=== PATIENT | female | born 1985 | race Caucasian/White ===

== ENCOUNTER → 2021-06-20 12:34 | Outpatient (BNVA) | payer MEDICAID, SELFPAY | PROVIDERS: Family Provider Family Medicine; Visit Provider Family Medicine | DX: Z00.00 Encounter for general adult medical examination without abnormal findings (principal); Z82.49 Family history of ischemic heart disease and other diseases of the circulatory system; Z83.3 Family history of diabetes mellitus | CPT/HCPCS: 80053; 80061; 83036; 84443; 85025 ==

== ENCOUNTER → 2021-09-25 11:27 | Outpatient (BNVA) | payer MEDICAID, SELFPAY | PROVIDERS: Family Provider Family Medicine; PCP Family Medicine; Visit Provider Family Medicine | DX: E78.5 Hyperlipidemia, unspecified (principal); R73.09 Other abnormal glucose | CPT/HCPCS: 80053; 80061; 83036 ==

== ENCOUNTER → 2022-01-21 11:10 | Outpatient (BNVA) | payer MEDICAID, SELFPAY | PROVIDERS: Family Provider Family Medicine; PCP Family Medicine; Visit Provider Family Medicine | DX: E11.9 Type 2 diabetes mellitus without complications (principal); E78.1 Pure hyperglyceridemia; F41.1 Generalized anxiety disorder; G43.909 Migraine, unspecified, not intractable, without status migrainosus; E66.9 Obesity, unspecified | CPT/HCPCS: 80053; 80061; 83036; 85025 ==

== ENCOUNTER → 2022-06-18 14:47 | Outpatient (BNVA) | payer MEDICAID, SELFPAY | PROVIDERS: Family Provider Family Medicine; PCP Family Medicine; Visit Provider Nurse Practitioner Family | DX: E11.9 Type 2 diabetes mellitus without complications (principal); I10 Essential (primary) hypertension; G43.909 Migraine, unspecified, not intractable, without status migrainosus | CPT/HCPCS: 71046; 80053; 80061; 82043; 82607; 83036; 84443; 85025 ==

== ENCOUNTER → 2022-07-04 14:00 | Outpatient (BNVA) | payer MEDICAID, SELFPAY | PROVIDERS: Family Provider Family Medicine; PCP Family Medicine; Visit Provider Nurse Practitioner Family | DX: Z12.4 Encounter for screening for malignant neoplasm of cervix (principal) | CPT/HCPCS: 87624 ==

== ENCOUNTER 2022-07-23 11:15 | Outpatient (CLI) | payer MEDICAID, SELFPAY ==
--- NOTE | 2022-07-23 11:15 | US_ITS ---
WS: [id number] Transabdominal and transvaginal PELVIC ULTRASOUND HISTORY: N94.10 - Unspecified dyspareunia COMPARISON: None available. Uterus: 9.8 cm x 5.7 cm x 4.8 cm. Normal size and echogenicity. No fibroids are identified. Endometrium: 1.7 cm. Normal homogeneity and size. Right ovary: 2.9 cm x 2.1 cm x 2.4 cm; no solid or cystic mass. Normal vascularity. There is a small cyst in the RIGHT adnexa was appears separate from the ovary measuring 16 x 11 x 13 mm. Paraovarian c yst is likely. This is very benign in appearance with no solid component. No increased vascularity. Left ovary: 3.0 cm x 3.1 cm x 1.9 cm; no solid or cystic mass. Normal vascularity. No free fluid in the cul-de-sac.
--- NOTE | 2022-07-23 13:45 | MR_ITS ---
WS: [id number] MRI BRAIN WITHOUT CONTRAST HISTORY: G43.909 - Migraine, unspecified, not intractable, without aura. COMPARISON: None available. TECHNIQUE: Diffusion imaging, multiplanar T1, T2 and FLAIR imaging obtained. No evidence for acute infarct or hemorrhage. Garcia-white matter differentiation is normal. No remote or acute infarcts are volume loss. Ventricles and extra-axial spaces are normal. No inferior displacement of cerebellar tonsils. The sella turcica and pituitary gland are unremarkabl e. Dural venous sinuses and [place] demonstrate no abnormality on this unenhanced studies. Paranasal sinuses: Significant mucoperiosteal thickening involving the RIGHT maxillary sinus with ext ension into the posterior ethmoid air cells and RIGHT sphenoid sinus. No air-fluid levels. Mastoid air cells: Normal. Calvarium and scalp: Intact. MR/MR head wo con* [id number] IMPRESSION: 1. No acute infarcts or hemorrhage. No significant atrophy. 2. Significant RIGHT maxillary, posterior ethmoid air cells and RIGHT sphenoid sinus disease.
--- NOTE | 2022-07-23 14:20 | US_ITS ---
WS: [id number] Transabdominal and transvaginal PELVIC ULTRASOUND HISTORY: N94.10 - Unspecified dyspareunia COMPARISON: None available. Uterus: 9.8 cm x 5.7 cm x 4.8 cm. Normal size and echogenicity. No fibroids are identified. Endometrium: 1.7 cm. Normal homogeneity and size. Right ovary: 2.9 cm x 2.1 cm x 2.4 cm; no solid or cystic mass. Normal vascularity. There is a small cyst in the RIGHT adnexa was appears separate from the ovary measuring 16 x 11 x 13 mm. Paraovarian c yst is likely. This is very benign in appearance with no solid component. No increased vascularity. Left ovary: 3.0 cm x 3.1 cm x 1.9 cm; no solid or cystic mass. Normal vascularity. No free fluid in the cul-de-sac. US/US pelvis lmt w transvag IMPRESSION: 1. Very mild thickening of the endometrium but no mass or nodules. Endometrium is measuring top normal size. No evidence for adenomyosis. 2. No ovarian mass or cyst. 3. RIGHT adnexal cyst. Maximum diameter 1.6 cm. Likely benign. Paraovarian cys t or paratubal cyst is likely.
== END 2022-07-23 11:16 | disposition home or self-care (01) ==
PROVIDERS: PCP Nurse Practitioner Family; Visit Provider Nurse Practitioner Family
DX: G43.909 Migraine, unspecified, not intractable, without status migrainosus (principal)
CPT/HCPCS: 70551; 76830; 76856; 76857

== ENCOUNTER → 2022-09-11 08:21 | Outpatient (BNVA) | payer MEDICAID, SELFPAY | PROVIDERS: PCP Nurse Practitioner Family; Visit Provider Nurse Practitioner Family | DX: R39.9 Unspecified symptoms and signs involving the genitourinary system (principal); J06.9 Acute upper respiratory infection, unspecified; B37.31 Acute candidiasis of vulva and vagina; N39.0 Urinary tract infection, site not specified | CPT/HCPCS: 81003 ==

== ENCOUNTER → 2022-11-08 09:10 | Outpatient (BNVA) | payer MEDICAID, SELFPAY | PROVIDERS: PCP Nurse Practitioner Family; Visit Provider Nurse Practitioner Family | DX: J02.9 Acute pharyngitis, unspecified (principal) | CPT/HCPCS: 87880 ==

== ENCOUNTER 2023-01-25 22:31 | Emergency (ER) | payer MEDICAID, SELFPAY ==
[2023-01-25 22:36] VITALS: BP 160/107; PULSE 88; RESP 16; TEMP 36.7; O2SAT 99; BMI 40.3
--- NOTE | 2023-01-25 22:50 | XRR_ITS ---
PROCEDURE INFORMATION: Exam: XR Right Knee Exam date and time: 01/25/2023 10:53 PM Age: 37 years old Clinical indication: Pain; Knee; Left; Additional info: Knee pain TECHNIQUE: Imaging protocol: Radiologic exam of the right knee. Views: 3 views. COMPARISON: No relevant prior studies available. FINDINGS: Bones/joints: Normal. Soft tissues: Normal. XR/XR knee RT 3V* [id number] IMPRESSION: No acute findings.
--- NOTE | 2023-01-25 23:25 | ED_ITS ---
HPI - Extremity Problem General: Chief complaint: Extremity Injury, Lower Stated complaint: R knee injury Time Seen by Provider: 01/25/23 22:34 History of Present Illness: Basia is a 37-year-old female that presents to the emergency department with complaints of right knee pain. Patient reports that she was having some back pain and went to the rest in bed. When she attempted to get out of bed to go to the restaurant she felt a twinge in her back and then developed this right lateral knee pain. Denies any symptoms in the proximal aspect of the leg, hip, low back. Is any symptoms in the distal aspect of the extremity. Denies numbness and tingling. Denies any back pain right now Denies falls or injuries Associated symptoms: Deny chest pain, fever(s) or rash Review of Systems General: Reports: 10 or more systems reviewed and unremarkable except in HPI and below Const: Denies: fever(s), chills, change in appetite, change in weight, fatigue or malaise Eyes: Denies: change in vision, eye discomfort, eye discharge or eye redness ENMT: Denies: throat pain, enlarged tonsils, odynophagia, hoarseness, ear or mastoid pain, ear discharge, change in hearing, tinnitus, nasal discharge, nasal congestion, post nasal drip or sinus pain Card: Denies: chest pain, palpitations, irregular heart rhythm, edema, dyspnea on exertion, orthopnea or leg pain with exertion Resp: Denies: dyspnea, productive cough, non-productive cough, wheezing, stridor or chest congestion GI: Denies: abdominal pain, nausea, vomiting, dysphagia, diarrhea, constipation, bloating, GI cramping or hematochezia : Denies: flank pain, difficulty voiding, dysuria, urinary frequency, urinary urgency, urinary hesitancy, oliguria or hematuria Musc: Denies: neck pain, back pain, extremity pain, joint pain, joint swelling, joint redness, joint warmth or muscle weakness Skin/Breast: Denies: rash, pruritus, erythema, photosensitivity or new lesions Neuro: Denies: headache(s), numbness in extremities, weakness in extremities, sensory changes, lack of coordination, difficulty walking, frequent falls, dizziness, confusion, Slurred speech present, difficulty communicating thoughts, seizure-like activity or involuntary movements Endo: Denies: polyuria, polydipsia or tired all the time Timi/Lymph: Denies: easy bruising or easy bleeding PFSH ED PFSH: Medical History FH: cholecystectomy Generalized anxiety disorder GERD (gastroesophageal reflux disease) Major depressive disorder No pertinent past medical history neghx: thryoid,dvt/pe PCP: Sharonda Lopez Obesity Obstruction of ventilation tube of both ears by cerumen PTSD (post-traumatic stress disorder) Surgical History Dilation of esophagus History of cholecystectomy History of tubal ligation Hx of tonsillectomy Family History Mother Psychiatric illness Diabetes Hypertension CAD (coronary artery disease) Heart disease Grandmother Stomach cancer maternal Unknown Breast cancer Uterine cancer Father Stroke Denies family history of Colon cancer Ovarian cancer Thyroid condition Social History Smoking and tobacco status: never smoked Alcohol intake: never Substance/Drug Use: never Lives independently: Yes Household members: spouse and children Marital status: Number of children: 3 Current occupational status: unemployed Current gender identity: Female Special ifeanyi needs: No Physical Exam Const: COMMON NORMALS: no acute distress, patient oriented x3 and alert GENERAL APPEARANCE: cooperative ORIENTATION/CONSCIOUSNESS: Yes awake, Yes oriented to person, Yes oriented to place and Yes oriented to time HENMT: COMMON NORMALS: normocephalic and atraumatic HEAD & SCALP: normocephalic and atraumatic FACE & SINUS: normal facial exam MOUTH: Normal oral and palatal mucosa present THROAT: posterior oropharynx normal Eye: COMMON NORMALS: Equal, round and reactive pupils present, EOMs intact bilaterally, conjunctivae normal and no scleral icterus GENERAL EYE: appearance normal, both eyes and all related structures ALIGNMENT: Yes alignment normal PERIORBITAL: periorbital findings normal CONJUNCTIVA: Yes conjunctivae normal PUPIL: Yes Equal, round and reactive pupils present Neck/C-Spine: COMMON NORMALS: full ROM GENERAL: Yes normal visual inspection Lymph: LYMPHATIC: no lymphadenopathy noted Chest: COMMONS NORMALS: normal inspection of the chest Breast/axilla inspection: Yes no chest deformity, asymmetry, normal contours, no nodules, masses, tenderness Resp: COMMON NORMALS: normal respiratory effort, No retractions, No use of accessory muscles and clear to auscultation bilaterally EFFORT & INSPECTION: Yes able to speak in complete sentences and Yes symmetric chest movement AUSCULTATION: clear to auscultation bilaterally Cardio: COMMON NORMALS: regular rate, regular rhythm and Peripheral pulses 2+ throughout RATE: regular rate RHYTHM: regular rhythm PERIPHERAL PULSES: Peripheral pulses 2+ throughout GI: COMMON NORMALS: Normal to inspection, nondistended, normoactive bowel sounds present, Soft to palpation, non-tender and No hepatosplenomegaly present INSPECTION: Yes normal to inspection AUSCULTATION: Yes normoactive bowel sounds PALPATION: Yes Soft to palpation and Yes No hepatosplenomegaly present RECTAL EXAM: deferred Extremity: COMMON NORMALS: normal to inspection GENERAL: Yes normal exam except as noted OTHER: Right lower extremity: Skin is clean dry and intact Nontender to palpation over right lumbar spine, hip, thigh. Patient is tender to palpation on the lateral aspect of the right knee. She has full active range of motion of hip and knee 5/5 strength hip flexor, quad, gastroc, anterior tibialis and toe extensors. Sensations intact throughout the extremity Pulses are palpable and cap refills less than 3 seconds Neuro: COMMON NORMALS: patient oriented x3 SENSORIUM/ORIENTATION: Yes alert, Yes oriented to person, Yes oriented to place and Yes oriented to time CRANIAL NERVES: Yes CN normal except as noted Psych: COMMON NORMALS: mental status grossly normal, Normal thought process present, cooperative, activity/motor behavior normal, denies homicidal ideation and denies suicidal ideation THOUGHT PROCESS: Normal thought process present Skin: COMMON NORMALS: no rashes or lesions noted, no wounds and turgor normal GENERAL SKIN EXAM: no rashes or lesions noted and turgor normal Course Vital Signs: Vital signs: Vital Signs Temperature 98.1 F 01/25/23 22:36 Pulse Rate 88 01/25/23 22:36 Respiratory Rate 16 01/25/23 22:36 Blood Pressure 160/107 01/25/23 22:36 Pulse Oximetry 99 01/25/23 22:36 MDM - Extremity (Nontraumatic) Medical Decision Making Patient was evaluated in the emergency department. Patient underwent XR of knees. Patient does relate history of possible right-sided lumbar back pain at the same time the knee pain developed. This has resolved and the knee pain persists. Talked with patient about the possibility that this pain is referred from her back with a nerve root impingement. If it continues she will need to see her primary care doctor but a potential MR of her lumbar spine. Needs to begin weight loss and back exercises. She may use nonsteroidal anti-inflammatory drugs to help with inflammation but should also add Tylenol to help with pain Ice to the knee Work on range of motion of the joints All questions answered Lab Data Radiology Impressions Knee X-Ray 01/25/23 22:50 IMPRESSION: No acute findings. Discharge Plan Discharge Patient Disposition: Home Clinical Impression: Knee strain Condition: Stable Prescriptions: No Action (DME) lancets 31 gauge misc See Rx Instructions .Route Qty: 100 0RF Rx Instructions: As directed diclofenac sodium 75 mg tablet,delayed release (DR/EC) 75 mg PO BID PRN (Reason: pain) Qty: 60 0RF cyclobenzaprine 10 mg tablet See Rx Instructions PO TID PRN (Reason: muscle spasm) Qty: 30 0RF Rx Instructions: 1/2 to 1 tablet orally three times daily PRN; Nurtec ODT 75 mg tablet,disintegrating 75 mg PO ONCE Qty: 10 5RF buspirone 10 mg tablet 10 mg PO BID Qty: 60 2RF Januvia 100 mg tablet 100 mg PO DAILY Qty: 30 4RF sertraline 100 mg tablet 200 mg PO DAILY Qty: 60 3RF fenofibrate 160 mg tablet 160 mg PO DAILY Qty: 30 2RF lisinopril 10 mg tablet 10 mg PO DAILY Qty: 30 3RF budesonide-formoterol [Symbicort] 160-4.5 mcg/actuation HFA aerosol inhaler 2 puff inhalation BID Qty: 10.2 2RF albuterol sulfate [ProAir HFA] 90 mcg/actuation HFA aerosol inhaler 2 puff inhalation Q6H PRN (Reason: shortness of breath or wheezing) Qty: 8.5 2RF (DME) Blood Glucose Test Strip See Rx Instructions .Route Qty: 50 2RF Rx Instructions: check blood sugar 2 times daily rizatriptan [Maxalt] 10 mg tablet See Rx Instructions PO .COMPLEX Qty: 10 5RF Rx Instructions: take 1 tab at onset of headache; if no relief may repeat 1 tab after at least 2 hrs; max = 3 tabs/24 hr PO montelukast [Singulair] 10 mg tablet 10 mg PO DAILY Qty: 30 2RF triamcinolone acetonide 0.1 % cream 1 applic topical BID Qty: 80 0RF pantoprazole [Protonix] 40 mg tablet,delayed release (DR/EC) 40 mg PO DAILY 30 Days Qty: 30 0RF sucralfate [Carafate] 1 gram tablet 1 g PO TID Qty: 20 0RF ondansetron HCl 4 mg tablet 4 mg PO TID PRN (Reason: nausea and vomiting) Qty: 20 0RF cetirizine [Zyrtec] 10 mg tablet 10 mg PO DAILY PRN (Reason: allergy symptoms) Qty: 90 1RF fluticasone propionate [Flonase Allergy Relief] 50 mcg/actuation spray,suspension 2 spray intranasal DAILY Qty: 16 2RF Rx Instructions: administer into each nostril famotidine 20 mg tablet See Rx Instructions .ROUTE .COMPLEX Qty: 60 1RF Dose Instruction: TAKE ONE TABLET BY MOUTH TWICE DAILY Rx Instructions: TAKE ONE TABLET BY MOUTH TWICE DAILY spinosad [Natroba] 0.9 % suspension 120 ml topical Q7D Qty: 120 0RF Discharge Orders: Discharge ED (Routine); Ordered 01/25/23 Ordered By: Cachorro Grimes Referrals: Sharonda Lopez FNP [Primary Care Provider] - Discharge Diet: Advance as tolerated Discharge Activity: Resume usual activity Patient Instructions: Knee Pain (ED), Pain Management Activity Restrictions/Additional Instructions: Ice, ibuprofen, Tylenol inflammation I want you to work on back exercises as well as weight loss to help with both the knee and back strong back and strong legs will help avoid future injury If your back pain or your knee pain, follow-up with your primary care doctor. 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
[2023-01-25 23:35] VITALS: BP 160/107; PULSE 88; RESP 16; TEMP 36.7; O2SAT 99
== END 2023-01-25 23:36 | disposition home or self-care (01) ==
PROVIDERS: Emergency Provider Nurse Practitioner; PCP Nurse Practitioner Family
DX: S76.911A Strain of unspecified muscles, fascia and tendons at thigh level, right thigh, initial encounter (principal); X58.XXXA Exposure to other specified factors, initial encounter
CPT/HCPCS: 73562; 99283

== ENCOUNTER 2023-03-07 09:01 | Outpatient (CLI) | payer MEDICAID, SELFPAY ==
--- NOTE | 2023-03-07 09:07 | XR_ITS ---
WS: [email or web address] [id number] REASON FOR EXAM: M79.602 - Pain in left arm FINDINGS: Humerus is intact without fracture. No periosteal reaction. No abnormality in the adjacent soft tissue. IMPRESSION: No significant abnormality.
--- NOTE | 2023-03-07 09:07 | XR_ITS ---
WS: [id number] XR wrist LT min 3V* [id number] REASON FOR EXAM: M79.602 - Pain in left arm FINDINGS: No acute fracture. No periosteal reaction. Radial and ulnar carpal joints are intact and well preserved. Intercarpal joints are intact and well preserved. No abnormality in the adjacent soft tissues. IMPRESSION: No significant abnormality.
== END 2023-03-07 09:02 | disposition home or self-care (01) ==
PROVIDERS: PCP Nurse Practitioner Family; Visit Provider Nurse Practitioner Family
DX: M79.602 Pain in left arm (principal)
CPT/HCPCS: 73060; 73110

== ENCOUNTER → 2023-04-11 09:21 | Outpatient (BNVA) | payer MEDICAID, SELFPAY | PROVIDERS: PCP Nurse Practitioner Family; Visit Provider Nurse Practitioner Family | DX: N64.4 Mastodynia (principal); R10.9 Unspecified abdominal pain | CPT/HCPCS: 81003; 81025; 87086 ==

== ENCOUNTER → 2023-04-21 12:06 | Outpatient (BNVA) | payer MEDICAID, SELFPAY | PROVIDERS: PCP Nurse Practitioner Family; Visit Provider Nurse Practitioner Family | DX: N93.9 Abnormal uterine and vaginal bleeding, unspecified (principal) | CPT/HCPCS: 84702 ==

== ENCOUNTER → 2023-07-14 15:31 | Outpatient (BNVA) | payer MEDICAID, SELFPAY | PROVIDERS: PCP Nurse Practitioner Family; Visit Provider Nurse Practitioner Family | DX: N39.0 Urinary tract infection, site not specified (principal) | CPT/HCPCS: 81003; 87086 ==

== ENCOUNTER → 2023-10-22 16:54 | Outpatient (BNVA) | payer MEDICAID, SELFPAY | PROVIDERS: PCP Nurse Practitioner Family; Visit Provider Nurse Practitioner Family | DX: E11.9 Type 2 diabetes mellitus without complications (principal) | CPT/HCPCS: 80053; 80061; 82043; 82607; 83036; 84443; 85025 ==

== ENCOUNTER 2023-11-12 09:56 | Outpatient (CLI) | payer MEDICAID, SELFPAY ==
--- NOTE | 2023-11-12 10:00 | MM_ITS ---
WS: [id number] BILATERAL SCREENING DIGITAL TOMOSYNTHESIS MAMMOGRAM WITH CAD HISTORY: Z12.39 - Encounter for other screening for malignant neop... COMPARISON: None available. Bilateral CC and MLO views with tomosynthesis and synthetic mammography submitted. Computer aided det ection analyzed. Breast composition: There are scattered areas of fibroglandular density. No suspicious masses, microc alcifications or architectural distortion. MM/[place] [id number] IMPRESSION: BI-RADS: 1-Negative FOLLOW UP: 1 Year Follow-up
== END 2023-11-12 09:57 | disposition home or self-care (01) ==
LOC: MOBLMAM 10:03
PROVIDERS: PCP Nurse Practitioner Family; Visit Provider Nurse Practitioner Family
DX: Z12.31 Encounter for screening mammogram for malignant neoplasm of breast (principal); R92.323 Mammographic fibroglandular density, bilateral breasts
CPT/HCPCS: 77063; 77067

== ENCOUNTER → 2024-04-05 12:50 | Outpatient (BNVA) | payer MEDICAID, SELFPAY | PROVIDERS: PCP Nurse Practitioner Family; Visit Provider Nurse Practitioner Family | DX: R05.9 Cough, unspecified (principal); M25.512 Pain in left shoulder | CPT/HCPCS: 73030; 87071; 87426; 87880 ==

== ENCOUNTER → 2024-04-16 14:41 | Outpatient (BNVA) | payer MEDICAID, SELFPAY | PROVIDERS: PCP Nurse Practitioner Family; Visit Provider Nurse Practitioner Family | DX: R10.9 Unspecified abdominal pain (principal) | CPT/HCPCS: 81000; 81025 ==

== ENCOUNTER → 2024-07-29 11:56 | Outpatient (BNVA) | payer MEDICAID, SELFPAY | PROVIDERS: Family Provider Nurse Practitioner Family; PCP Nurse Practitioner Family; Visit Provider Nurse Practitioner Family | DX: N93.9 Abnormal uterine and vaginal bleeding, unspecified (principal) | CPT/HCPCS: 80053; 81025; 83001; 84146; 84443; 85025 ==

== ENCOUNTER → 2024-08-24 09:46 | Outpatient (BNVA) | payer MEDICAID, SELFPAY | PROVIDERS: Family Provider Nurse Practitioner Family; PCP Nurse Practitioner Family; Visit Provider Nurse Practitioner Family | DX: L03.011 Cellulitis of right finger (principal) | CPT/HCPCS: 87070; 87075; 87077; 87184; 87205 ==

== ENCOUNTER → 2024-09-15 11:09 | Outpatient (BNVA) | payer MEDICAID, SELFPAY | PROVIDERS: Family Provider Nurse Practitioner Family; PCP Nurse Practitioner Family; Visit Provider Nurse Practitioner Women's Health | DX: N93.9 Abnormal uterine and vaginal bleeding, unspecified (principal) | CPT/HCPCS: 82607; 82728; 82746; 83550 ==

== ENCOUNTER → 2024-10-06 11:06 | Outpatient (BNVA) | payer MEDICAID, SELFPAY | PROVIDERS: Family Provider Nurse Practitioner Family; PCP Nurse Practitioner Family; Visit Provider Nurse Practitioner Women's Health | DX: N92.6 Irregular menstruation, unspecified (principal) | CPT/HCPCS: 76830 ==

== ENCOUNTER → 2024-12-31 12:57 | Outpatient (BNVA) | payer MEDICAID, SELFPAY | PROVIDERS: Family Provider Nurse Practitioner Family; PCP Nurse Practitioner Family; Visit Provider Nurse Practitioner Family | DX: M79.632 Pain in left forearm (principal); M19.012 Primary osteoarthritis, left shoulder; M25.712 Osteophyte, left shoulder | CPT/HCPCS: 73030; 73090 ==

== ENCOUNTER → 2025-01-13 12:02 | Outpatient (BNVA) | payer MEDICAID, SELFPAY | PROVIDERS: Family Provider Nurse Practitioner Family; PCP Nurse Practitioner Family; Visit Provider Nurse Practitioner Family | DX: M54.9 Dorsalgia, unspecified (principal); N39.0 Urinary tract infection, site not specified | CPT/HCPCS: 81003; 87086 ==

== ENCOUNTER 2025-02-01 10:37 | Day surgery (SDC) | payer MEDICAID, SELFPAY ==
[2025-02-01] VITALS (12 sets, daily range): BP systolic 117–154; BP diastolic 83–111; PULSE 82–90; RESP 13–22; TEMP 36.1–36.4; O2SAT 91–100; BMI 41.9
--- NOTE | 2025-02-01 01:06 | W.PM.OPSFHP ---
Same Day Surgery H&P Indication for Procedure/HPI DATE OF PROCEDURE: February 01, 2025 CHIEF COMPLAINT/INDICATIONFOR SURGICAL PROCEDURE: abnormal uterine bleeding PREOP DIAGNOSIS: abnormal uterine bleeding PLANNED PROCEDURE: Operation Date: 02/01/25 12:15 Proposed Procedures p Hysteroscopy w/ Endometrial Sampling 12530 [id number] 20044, N92.6(Not Applicable) - Jung Peralta MD s POSSIBLE Endometrial Poylpectomy(Not Applicable) - Jung Peralta MD s Endometrial Ablation(Not Applicable) - Jung Peralta MD Medications/Allergies* Home Medications ?Medication ?Instructions ?Recorded ?Confirmed ?Type albuterol sulfate 90 mcg/actuation 1 inh inhalation DIRECTED 01/31/25 01/31/25 History aerosol inhaler (Ventolin HFA) diclofenac sodium 75 mg 75 mg PO BID 01/31/25 01/31/25 History tablet,delayed release pantoprazole 40 mg tablet,delayed 40 mg PO DAILY 01/31/25 01/31/25 History release Allergies/Adverse Reactions Allergy/AdvReac Type Severity Reaction Status Date / Time morphine Allergy Severe sick Verified 12/09/24 10:26 metformin Allergy Intermediate ALGY-Rash Verified 12/09/24 10:26 Pertinent History/Comorbid Conditions* Medical History (Updated 09/27/24 @ 10:33 by Erma Naylor NP) Para-ovarian cyst (~2022) incidental finding on u/s No pertinent past medical history neghx: thryoid,dvt/pe PCP: Sharonda Lopez GERD (gastroesophageal reflux disease) Obstruction of ventilation tube of both ears by cerumen FH: cholecystectomy Obesity Generalized anxiety disorder Major depressive disorder PTSD (post-traumatic stress disorder) Surgical History (Updated 01/06/23 @ 10:04 by BONILLA Roman) History of cholecystectomy Dilation of esophagus Hx of tonsillectomy History of tubal ligation Family History (Updated 09/17/22 @ 11:08 by Emilie Eller LPN) Grandmother Mother Stomach cancer Grandmother maternal Diabetes Mother CAD (coronary artery disease) Mother Heart disease Mother Psychiatric illness Mother Breast cancer Unknown Hypertension Mother Uterine cancer Unknown Stroke Father Denies family history of Colon cancer Ovarian cancer Thyroid disease Social History Smoking and tobacco/nicotine status: never used tobacco/nicotine Alcohol intake: never Substance/Drug Use: never Lives independently: Yes Household members: spouse and children Marital status: Number of children: 3 Current occupational status: unemployed Current gender identity: Female Special ifeanyi needs: No Pertinent Exam Findings alert, oriented x 3, clear to auscultation bilaterally and regular rate & rhythm Recommendations Surgery/Procedure today Coding Level of Care Code Acute Code for Chg Fwd
--- NOTE | 2025-02-01 11:12 | W.PM.OPSUD ---
Surgery/Procedure H&P Update DATE OF PROCEDURE: February 01, 2025 DATE H&P PERFORMED: 02/01/25 H&P UPDATE INFORMATION: I have reviewed H&P completed within last 30 days, I have examined patient prior to procedure and No changes to prior documentation PREOP DIAGNOSIS: abnormal uterine bleeding PLANNED PROCEDURE: Operation Date: 02/01/25 12:15 Proposed Procedures p Hysteroscopy w/ Endometrial Sampling 08595 [id number] 88112, N92.6(Not Applicable) - Jung Peralta MD s POSSIBLE Endometrial Poylpectomy(Not Applicable) - Jung Peralta MD s Endometrial Ablation(Not Applicable) - Jung Peralta MD
--- NOTE | 2025-02-01 11:22 | ANES.PREANE2 ---
Pre-Anesthetic Assessment Height/Weight: Height 1.68 m Weight 117.934 kg Temp Pulse Resp BP Pulse Ox O2 Del Method 97 F L 90 18 153/99 98 Room Air 02/01/25 11:00 02/01/25 11:00 02/01/25 11:00 02/01/25 11:22 02/01/25 11:00 02/01/25 11:00 Preop Diagnosis: abnormal uterine bleeding Operation Date: 02/01/25 12:15 Proposed Procedures p Hysteroscopy w/ Endometrial Sampling 08155 [id number] 84970, N92.6(Not Applicable) - Jung Peralta MD s POSSIBLE Endometrial Poylpectomy(Not Applicable) - Jung Peralta MD s Endometrial Ablation(Not Applicable) - Jung Peralta MD Familial anesthetic complications: None Was Beta Mono taken within 24 hours: N/A Was Clonidine taken within 24 hours: N/A Last intake: Intake Last Liquid Date 01/31/25 Last Liquid Time 22:30 Last Solid Date 01/31/25 Last Solid Time 22:30 Social No alcohol and No tobacco Exam alert, oriented x 3, clear to auscultation bilaterally and regular rate & rhythm Airway Mallampati: Class II Dentition: chipped Pulmonary Asthma CV/HEM Hypertension GI Gastroesophageal Reflux Disease Metabolic Diabetes Mellitus and Morbid Obesity Anesthetic Plan ASA status: 3 Anesthesia: General Risk of > 500 ml blood loss (7ml/kg in children): No Medications/Allergies Home Medications ?Medication ?Instructions ?Recorded ?Confirmed ?Last Taken ?Type lancets 31 gauge #100 ea 01/21/22 01/14/25 Unknown Rx blood sugar diagnostic (Blood #50 ea 03/28/22 01/14/25 Unknown Rx Glucose Test strips) blood sugar diagnostic (Blood #200 ea 07/14/23 01/14/25 Unknown Rx Glucose Test strips) blood-glucose meter #1 ea 07/14/23 01/14/25 Unknown Rx lancets #200 ea 07/14/23 01/14/25 Unknown Rx dapagliflozin propanediol 10 mg 10 mg PO QAM #30 tabs 10/27/23 01/31/25 01/31/25 Rx tablet (Farxiga) albuterol sulfate 90 mcg/actuation 1 inh inhalation DIRECTED 01/31/25 01/31/25 01/29/25 History aerosol inhaler (Ventolin HFA) diclofenac sodium 75 mg 75 mg PO BID 01/31/25 01/31/25 Unknown History tablet,delayed release pantoprazole 40 mg tablet,delayed 40 mg PO DAILY 01/31/25 01/31/25 01/30/25 History release Allergies Allergy/AdvReac Type Severity Reaction Status Date / Time morphine Allergy Severe sick Verified 02/01/25 11:00 metformin Allergy Intermediate ALGY-Rash Verified 02/01/25 11:00 Current Medications Generic Name Dose Route Start Last Admin Trade Name [place] PRN Reason Stop Dose Admin Sodium Chloride 1,000 mls @ 30 mls/hr 02/01/25 10:45 02/01/25 11:13 Sodium Chloride 0.9% IV 02/02/25 10:44 30 mls/hr .Q24H [place] Administration PFSH Anesthesia Medical History Para-ovarian cyst (~2022) incidental finding on u/s No pertinent past medical history neghx: thryoid,dvt/pe PCP: Sharonda Lopez GERD (gastroesophageal reflux disease) Obstruction of ventilation tube of both ears by cerumen FH: cholecystectomy Obesity Generalized anxiety disorder Major depressive disorder PTSD (post-traumatic stress disorder) Surgical History History of cholecystectomy Dilation of esophagus Hx of tonsillectomy History of tubal ligation Family History Mother Psychiatric illness Diabetes Hypertension CAD (coronary artery disease) Heart disease Grandmother Stomach cancer maternal Unknown Breast cancer Uterine cancer Father Stroke Denies family history of Colon cancer Ovarian cancer Thyroid disease Social History Smoking and tobacco/nicotine status: never used tobacco/nicotine Alcohol intake: never Substance/Drug Use: never Lives independently: Yes Household members: spouse and children Marital status: Number of children: 3 Current occupational status: unemployed Current gender identity: Female Special ifeanyi needs: No
--- NOTE | 2025-02-01 13:35 | PM.OP ---
Operative Report Date of procedure: February 01, 2025 Pre-op diagnosis: abnormal uterine bleeding Post-op diagnosis: same Post-op findings: Normal endometrial cavity No endometrial polyps or fibroids Minimal endometrial tissue Unable to perform endometrial ablation due to technical difficulties Procedure done: Hysteroscopy Curettage of uterus Attempted endometrial ablation with Novasure device Implants: none Specimens removed/disposition: endometrial curettings Surgeon: Jung Peralta MD Anesthesia: MAC Estimated blood loss (mL): 5 Complications: none Findings: see above Condition: stable Disposition: PACU Brief History: 39 y.o. with history of irregular, heavy menstrual bleeding Procedure: The patient was taken to the OR and placed supine on the table. General endotracheal anesthesia was induced. The patient was then placed in dorsolithotomy position. The perineum were then prepped and draped in the usual fashion. A speculum was placed in the vagina. The anterior lip of the cervix was grasped with a sharp-toothed tenaculum. The uterus was sounded to 8 cm. The cervix was serially dilated with Hegar dilators. . A hysteroscope was placed into the endometrial cavity. The endometrial cavity was seen to be normal. There were no polyps or fibroids. There was minimal endometrial tissue. The hysteroscope was then removed. Endometrial curettage was done with a sharp curette. Endometrial tissue was sent to pathology. The Novasure device was then primed and inserted into the endometrial cavity. The cervical occlusion sleeve was advanced. Cavity integrity test was done. However, the device could not be activated. Several attempts were made to activate the device, as well as changing to new equipment. Endometrial ablation was then aborted. Repeat hysteroscopy showed an intact endometrial cavity. All instruments were then removed. The sharp-toothed tenaculum was removed. There was no bleeding from the endometrial cavity or cervix. The patient was then placed supine and awakened and taken to the PACU. Postop condition: stable EBL: 5 cc Sponge and instruments counts were normal x 2 Complications: none
--- NOTE | 2025-02-01 14:15 | ANE.PACU2 ---
Inpatient post-anesthesia follow up: Airway intact: Yes Vital signs: Temperature 97 F Pulse Rate 90 Respiratory Rate 17 Blood Pressure 151/92 Pulse Oximetry 97 Oxygen Delivery Me thod Room Air Oxygen Flow Rate Fraction of Inspir ed Oxygen Hydration adequate: Yes Nausea and vomiting: No Pain level: 1 Mental status: Baseline
== END 2025-02-01 14:20 | disposition home or self-care (01) ==
PROVIDERS: PCP Nurse Practitioner Family; Visit Provider Obstetrics & Gynecology
PROC: 0UJD8ZZ Inspection of Uterus and Cervix, Via Natural or Artificial Opening Endoscopic (ICD-10-PCS; CPT 58555; principal; 2025-02-01 12:05)
DX: N93.9 Abnormal uterine and vaginal bleeding, unspecified (principal); K21.9 Gastro-esophageal reflux disease without esophagitis; E66.01 Morbid (severe) obesity due to excess calories; Z68.41 Body mass index [BMI] 40.0-44.9, adult; F41.9 Anxiety disorder, unspecified; F32.9 Major depressive disorder, single episode, unspecified; F43.10 Post-traumatic stress disorder, unspecified; I10 Essential (primary) hypertension; E11.9 Type 2 diabetes mellitus without complications
CPT/HCPCS: 58558; 36416; 82962; 88305; J1100; J1200; J1885; J2250; J2405; J2704; J3010; J7030; J9999